=== PATIENT | female | born 2000 | race Caucasian/White ===

== ENCOUNTER 2018-05-18 21:01 | Inpatient (IN) | payer BC ==
[~2018-05-18] VITALS: Ht 162.6 cm; Wt 78.4 kg
[~2018-05-18 21:01] MED LIST: INTUNIV3 MG PO; METHYLPHENIDATE18 MG PO; STRATTERA60 MG PO
[2018-05-18 22:21] LABS: HEMATOCRIT 36.7 % (36.0-46.0); HEMOGLOBIN 12.7 G/DL (11.9-15.5); MCH 29.5 PG (29.0-34.0); MCHC 34.6 G/DL (30.0-36.0); MCV 85.3 FL (83-99); PLATELET COUNT 319 K/uL (156-360); RBC DIS.WIDTH-CV 12.5 % (11.8-14.6); RBC DIS.WIDTH-SD 38.8 % (39-53); WHITE BLOOD COUNT 9.8 K/uL (4.1-10.2)
[2018-05-18 22:38] LABS: CHLORIDE 108 mEq/L (99-109); POTASSIUM 3.9 mEq/L (3.7-5.4); SODIUM 141 mEq/L (136-147)
[2018-05-18 22:40] LABS: GLUCOSE 90 mg/dL (70-99)
[2018-05-18 22:43] LABS: SERUM ETHYL ALCOHOL < 10 mg/dL
[2018-05-18 22:44] LABS: CREATININE 0.8 mg/dL (0.6-1.3); GFR ESTIMATE (CALCULATED) > 59 mL/min/
[2018-05-18 22:45] LABS: UREA NITROGEN (BUN) 9 mg/dL (9-23)
[2018-05-18 22:52] LABS: QUANTITATIVE HCG < 4.0 MIU/ML
[2018-05-18 23:24] LABS: AMPHETAMINE NEGATIVE (500 ng/mL); BARBITURATES NEGATIVE (200 ng/mL); BENZODIAZEPINES NEGATIVE (150 ng/mL); BUPRENORPHINE NEGATIVE (10 ng/mL); COCAINE NEGATIVE (150 ng/mL); METHADONE NEGATIVE (200 ng/mL); METHAMPHETAMINE NEGATIVE (500 ng/mL); OPIATES (MORPHINE) NEGATIVE (100 ng/mL); OXYCODONE NEGATIVE (100 ng/mL); PHENCYCLIDINE NEGATIVE (25 ng/mL); PROPOXYPHENE NEGATIVE (300 ng/mL); THC CANNABINOIDS NEGATIVE (50 ng/mL); TRICYCLIC ANTIDEPRESSANTS NEGATIVE (300 ng/mL)
[2018-05-19] MEDS ORDERED: DESYREL100 MG PO (14:28)
[2018-05-19] MEDS ORDERED: GEODON80 MG PO (14:28)
[2018-05-19] MEDS ORDERED: PROPRANOLOL HCL20 MG PO (14:29)
[2018-05-19] MEDS ORDERED: ZOLOFT50 MG PO (14:29)
[2018-05-19] MEDS ORDERED: LAMICTAL100 MG PO (14:30)
[2018-05-19 17:14] VITALS: BP 128/64
[2018-05-20 08:09] VITALS: BP 113/53
[2018-05-20 16:22] VITALS: BP 116/55
[2018-05-21 08:16] VITALS: BP 108/60
[2018-05-21 15:29] VITALS: BP 118/75
[2018-05-22] MEDS ORDERED: SERTRALINE HCL100 MG PO (09:20)
[2018-05-22] MEDS ORDERED: LAMOTRIGINE150 MG PO (09:20)
[2018-05-22 09:37] VITALS: BP 103/58
== END 2018-05-22 11:46 | disposition home or self-care (01) | DRG 882 ==
LOC: EME 21:01 → EDOF 05-19 10:45 → 1WEST 05-19 10:45 → ENRESERV 05-19 13:01 → 1WEST 05-19 13:01
DX: F43.23 Adjustment disorder with mixed anxiety and depressed mood (principal); R45.851 Suicidal ideations; F33.2 Major depressive disorder, recurrent severe without psychotic features; F90.9 Attention-deficit hyperactivity disorder, unspecified type; F60.9 Personality disorder, unspecified; Z79.899 Other long term (current) drug therapy; Q86.0 Fetal alcohol syndrome (dysmorphic)
CPT/HCPCS: 80048; 84702; 85027; 90839; 99281; 99285; G0480